=== PATIENT | female | born 1990 | race Caucasian/White ===

== ENCOUNTER 2017-01-10 20:19 | Emergency (ER) | payer BC, OTHER ==
[2017-01-10] MEDS ORDERED: PROPARACAINE 0.5% OPHTH DROPS 15 ML BTL BOTH EYES STA (21:04)
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
[2017-01-10] MEDS ORDERED: CEPHALEXIN 500 MG CAP PO STA (22:26)
[2017-01-10] MEDS ORDERED: HYDROcodone/APAP 5-325MG 1 EACH TAB PO STA (22:29)
[2017-01-10 22:49] VITALS: BP 123/87; PULSE 88; RESP 16; TEMP 98.9
== END 2017-01-10 22:54 | disposition home or self-care (01) ==
LOC: EC 20:19
DX: S02.32XA Fracture of orbital floor, left side, initial encounter for closed fracture (principal); H11.31 Conjunctival hemorrhage, right eye; R68.84 Jaw pain; Y04.8XXA Assault by other bodily force, initial encounter; Y92.009 Unspecified place in unspecified non-institutional (private) residence as the place of occurrence of the external cause
CPT/HCPCS: 70486; 99284